=== PATIENT | male | born 1975 | race Caucasian/White ===

== ENCOUNTER → 2017-04-11 | Day surgery (SDC) | payer OTHER ==
[2017-04-05 10:02] VITALS: Ht 175.3 cm; Wt 88.6 kg
[~2017-04-11] VITALS: Ht 175.3 cm; Wt 88.6 kg
[~2017-04-11] MED LIST: ATROPINE SULFATE 0.1 MG/ML 5ML SYR IV PRN; BUPIVACAINE/EPINEPHRINE 0.25% 1:200,000 30 ML VIAL ONE; CEFAZOLIN 2000 MG/60 ML D5W IV SCH; CEFAZOLIN SOD 1 GM VIAL ONE; CEFAZOLIN SOD 1000MG/55 ML D5W IV ONE; DEXAMETHASONE SOD INJ 4 MG/ML VIAL ONE; ESCI10TA17 PO; EpHEDrine SULFATE INJ 50 MG/ML AMP IV PRN; EpHEDrine SULFATE INJ 50 MG/ML AMP ONE; EpINEphrine HCL INJ 1 MG/ML 5ML SYRINGE ONE; EpINEphrine INJ 1MG/ML AMP 1 MG/ML AMP ONE; FENO145T26 PO; FENTANYL CITRATE INJ 50 MCG/1 ML 2 ML VIAL ONE; FLUMAZENIL 0.1 MG/1 ML 10 ML VIAL IV PRN; HYDROmorphone INJ 1 MG/ML SYR IV PRN; HYDROmorphone INJ 1 MG/ML SYR ONE; KETO10TA PO; KETOROLAC TROMETHAMINE 30 MG/ML VIAL ONE; LABETALOL HCL IV 5 MG/ML 20ML IV PRN; LACTATED RINGER'S 1000ML 1,000 ML IV SCH; LIDOCAINE HCL 2% 2 ML VIAL (20MG/ML) ONE; MIDAZOLAM HCL 1 MG/ML 2ML VIAL ONE; NALOXONE HCL 0.4 MG/1 ML VIAL/CARP IV PRN; OMEG100046 PO; ONDANSETRON INJ 2 MG/ML 2 ML VIAL IV PRN; ONDANSETRON INJ 2 MG/ML 2 ML VIAL ONE; OXYC-57 PO; OXYCODONE/ACETAMINOPHEN 5-325 TAB PO PRN; PROMETHAZINE HCL INJ 12.5 MG in SODIUM CHLORIDE 0.9% 50ML 50 ML IV PRN; PROPOFOL IV EMULSION 10 MG/ML 20 ML VIAL IV ONE; ROPIVACAINE 0.5% 5 MG/ML 30 ML VIAL ONE; SODIUM CHLORIDE 0.9% 1000ML 1,000 ML IV SCH
--- NOTE | 2017-04-11 06:54 | History & Physical Bridge - [place] ---
H&P Re-Evaluation Bridge Note: I have examined the patient, reviewed the History & Physical and in the interval since the performance of the History & Physical I have noted the following changes of clinical significance: No changes noted
--- NOTE | 2017-04-11 09:55 | [facility] Post Operative Brief Note ---
Immediate Operative Summary Operative Date Apr 11, 2017. Pre-Operative Diagnosis Left knee anterior cruciate ligament tear Post-Operative Diagnosis Same as preop + Lateral Meniscus Tear Procedure(s) Performed Left Knee Arthroscopic Anterior Cruciate Ligament Reconstruction Using Hamstring Autograft, Partial Lateral Meniscectomy Surgeon Dr. Gonzalez Termination Clerk Surgeon(s) Gatito Crystal PA-C Estimated Blood Loss Minimal Findings Left ACL Tear + Lateral Meniscus Tear Specimens None Anesthesia General Complication(s) None Disposition Recovery Room / PACU
--- NOTE | 2017-04-11 10:06 | Discharge Instructions-SurgCtr ---
Discharge Instructions Date of Service Apr 11, 2017. Visit Reason for Visit: Left Knee Ruptured Acl, Sprain Mcl Discharge Discharge Diagnosis / Problem: Left ACL tear, lateral meniscus tear Discharge Goals Goal(s): Decrease discomfort, Improve function, Therapeutic intervention Activity Recommendations Activity Limitations: per Instructions/Follow-up section Weightbearing Status: Left weightbearing (as tolerated with brace ) Anesthesia . Post Anesthesia Instructions: If you have had General Anesthesia or IV Sedation: * Do not drive today. * Resume driving when surgeon permits. * Do not make important decisions or sign legal documents today. * Call surgeon for: 1. Temperature elevations greater than 101 degrees F. 2. Uncontrollable pain. 3. Excessive bleeding. 4. Persistent nausea and vomiting. 5. Medication intolerance (nausea, vomiting or rash). * For nausea and vomiting use only clear liquids such as: tea, soda, bouillon until nausea subsides, then gradually increase diet as tolerated. * If you have any concerns or questions, call your surgeon's office. If physician is unavailable and it is an emergency, call 911 or go to the nearest emergency room. . Instructions / Follow-Up Instructions / Follow-Up MEDICATIONS: * Resume previous medications unless instructed otherwise by your surgeon. * Always take pain medication on a full stomach or with food to avoid upset stomach. * Do not drink alcohol or drive while taking narcotics. * Ibuprofen or Tylenol may be taken if narcotic not needed. No ibuprofen while taking toradol SPECIAL CARE INSTRUCTIONS: __ None _x_ Keep extremity elevated and iced x 48 hours; apply ice 20-30 minutes 8-10 times/day. May remove at night. _x_ Crutches __ May discard when able _x_ Brace (for weight bearing. remove for therapy exercises) __ 24 hrs/day __ Remove at night _x_ Dressing __ Maintain until seen in office, may shower with plastic over site _x_ Remove dressings in 24-48 hours and then may shower _x_ Cover incisions with band-aids after showering _x_ Do not remove steri-strips Call physician if chills or temperature rises above 102 degrees or pain unrelieved by prescribed pain medications. Office [phone] follow up in 2 weeks Diet Recommendations Home Diet: resume previous diet Procedures Procedures Performed: Left Knee Arthroscopic Anterior Cruciate Ligament Reconstruction Using Hamstring Autograft, Partial Lateral Meniscectomy Pending Studies Studies pending at discharge: no Medical Emergencies . Who to Call and When: Medical Emergencies: If at any time you feel your situation is an emergency, please call 911 immediately. . Non-Emergent Contact Non-Emergency issues call your: Surgeon . . "Provider Documentation" section prepared by Cecil Crystal. .
[2017-04-11 11:15] VITALS: TEMP 36.8
--- NOTE | 2017-04-11 11:15 | Anesthesia Progress Nt - [facility] ---
Anesthesia Post Op Note Date & Time Apr 11, 2017 at 11:15 Vital Signs Pain Intensity: 2 Vital Signs Past 12 Hours Date Time Temp Pulse Resp B/P (MAP) Pulse Ox O2 Delivery O2 Flow Rate FiO2 04/11/17 10:56 139/70 04/11/17 10:55 88 21 99 04/11/17 10:55 91 21 04/11/17 10:51 145/89 04/11/17 10:51 36.9 83 16 145/89 98 Room Air 04/11/17 10:50 88 17 04/11/17 10:50 90 17 97 04/11/17 10:46 141/84 04/11/17 10:45 83 16 04/11/17 10:45 85 16 99 04/11/17 10:41 152/88 04/11/17 10:40 88 20 98 04/11/17 10:40 88 20 04/11/17 10:36 156/91 04/11/17 10:35 83 12 95 04/11/17 10:35 83 12 04/11/17 10:31 149/91 04/11/17 10:30 76 7 98 04/11/17 10:30 76 7 04/11/17 10:27 139/99 04/11/17 10:25 86 15 91 04/11/17 10:25 85 15 04/11/17 10:21 125/91 04/11/17 10:20 86 15 04/11/17 10:20 86 15 93 04/11/17 10:16 152/90 04/11/17 10:15 73 12 98 04/11/17 10:15 74 12 04/11/17 10:11 142/93 04/11/17 10:10 84 11 04/11/17 10:10 84 11 98 04/11/17 10:06 163/97 04/11/17 10:05 87 14 04/11/17 10:05 90 14 96 04/11/17 10:04 153/94 04/11/17 10:03 129/107 04/11/17 10:00 93 12 95 04/11/17 10:00 93 12 04/11/17 10:00 36.2 84 12 170/98 98 Mask 6 04/11/17 09:59 170/98 04/11/17 08:00 9 04/11/17 07:59 92 11 97 04/11/17 07:59 89 04/11/17 07:58 73 9 97 04/11/17 07:58 73 04/11/17 07:57 75 9 97 04/11/17 07:57 76 04/11/17 07:56 135/70 04/11/17 07:55 76 9 98 04/11/17 07:55 76 04/11/17 07:54 80 04/11/17 07:54 77 8 98 04/11/17 07:53 77 04/11/17 07:53 79 5 99 04/11/17 07:52 80 04/11/17 07:52 77 7 99 04/11/17 07:51 122/73 04/11/17 07:47 73 04/11/17 07:47 73 99 04/11/17 07:46 142/87 04/11/17 07:45 71 04/11/17 07:45 72 5 99 04/11/17 07:41 141/92 04/11/17 07:40 74 04/11/17 07:40 77 13 100 04/11/17 07:37 138/95 04/11/17 07:35 75 0 04/11/17 07:30 72 0 04/11/17 07:25 75 0 04/11/17 07:20 71 0 04/11/17 07:15 70 0 04/11/17 07:10 90 0 04/11/17 06:38 36.7 70 16 150/97 (114) 99 Room Air Notes Mental Status: alert / awake / arousable, participated in evaluation Pt Amnestic to Procedure: Yes Nausea / Vomiting: adequately controlled Pain: adequately controlled Airway Patency, RR, SpO2: stable & adequate BP & HR: stable & adequate Hydration State: stable & adequate Anesthetic Complications: no major complications apparent
[2017-04-11 11:43] VITALS: BP 135/82; PULSE 86; O2SAT 98
--- NOTE | 2017-04-11 14:45 | OPERATIVE REPORT ---
DATE OF OPERATION: 04/11/2017 PREOPERATIVE DIAGNOSIS: Left knee anterior cruciate ligament tear. POSTOPERATIVE DIAGNOSES: 1. Left knee anterior cruciate ligament tear. 2. Left unstable degenerative lateral meniscus tear. 3. Mild left knee degenerative joint disease. PROCEDURE PERFORMED: 1. Left knee exam under anesthesia. 2. Left knee diagnostic arthroscopy. 3. Left knee arthroscopic anterior cruciate ligament reconstruction with 7-1/2 mm/8 mm semitendinosis/gracilis autograft. 4. Left knee partial lateral meniscectomy. SURGEON: Tim Gonzalez M.D. RN PEDIATRIC ICU: Cecil Crystal PA-C. COMPLICATIONS: None. ESTIMATED BLOOD LOSS: Minimal. TOURNIQUET TIME: 70 minutes at 300 mmHg. ANESTHESIA: General with adductor canal block. DRAINS: None. SPECIMENS: None. OPERATIVE INDICATIONS: The patient is a 41-year-old very active gentleman who [place] just about [place] the [place] He [place] playing on the beach and jumped up and landed on his left knee and sustained an injury to his knee. He was seen in clinic and diagnosed with an ACL tear/MCL tear. This was confirmed by MRI. We treated his MCL and got that healed up and the patient now elected to proceed with operative treatment to his ACL. OPERATIVE FINDINGS: Examination under anesthesia of the left knee revealed a small knee effusion. Range of motion was full extension to 135+ degrees of flexion. He did have a varus alignment to his knee. He had a positive Lb, grade 2 pivot, negative anterior drawer, negative posterior drawer. No varus or valgus instability. Excellent endpoint to valgus stress test. Larry's was negative for mechanical symptoms. He had no posterolateral rotatory instability. ARTHROSCOPIC FINDINGS: Arthroscopic findings revealed a small serous knee effusion. He did have diffuse fairly mild grade 1 changes in all 3 compartments. In the intercondylar notch, the ACL was completely torn and portion of this was flipped anteriorly. The PCL was intact. In the medial compartment, the meniscus was intact. There was a slight increased gapping with valgus stressing. Good endpoint. In the lateral compartment, there was a complex tear of the posterior horn of the lateral meniscus. It was torn in several planes. It was not felt to be repairable. The articular surface revealed some grade 1 changes. OPERATIVE PROCEDURE: The patient was taken to the operating room, identified and placed on the operating table in supine position. All contact areas were appropriately padded. IV antibiotics were provided by anesthesia team. A general anesthetic was implemented by anesthesia team. An adductor canal block had been provided in the holding area. A left thigh tourniquet was then placed. The left knee was then examined under anesthesia with the findings as described above. Left leg was then prepped and draped in the usual sterile fashion. The left leg was elevated and exsanguinated with Esmarch and tourniquet was placed at 300 mmHg. Attention was first drawn toward harvesting the graft. About 4-5 cm incision made directly over the hamstring tendons. Sharp dissection was carried down through the subcutaneous tissues down to the level of the sartorius fascia. The subcutaneous tissues were mobilized circumferentially. An oblique incision was made in the sartorius fascia just above the hamstring tendons. The hamstring tendons were then taken sharply off the anterior face of the tibia. A #2 Ticron whipstitch was placed in the end of each tendon. Each tendon was then harvested with a closed ended tendon stripper. It was taken to the back table. They were cut to 21 cm in length. The muscle was stripped off the opposite end of the tendon. A similar #2 Ticron whipstitch was placed on the opposite end of the tendon. The tendons were then folded over. The femoral side fit snugly through a 7.5 mm tunnel and the tibial side through an 8 mm tunnel. The graft was placed on a graft board and 10 pounds of tension were applied until ready for implantation. During graft preparation, routine left knee arthroscopy was then performed through typical anteromedial and anterolateral portals. A superolateral outflow portal was established for outflow. The remnant of the ACL was excised. A pretty significant notchplasty was performed as he had fairly significant A-frame notch. Attention was then drawn to the lateral meniscus. With the use of motorized and hand controlled instruments, a partial lateral meniscectomy was then performed. I resected this back to stable tissue. We left as much meniscus tissue there to preserve some meniscal function. Attention was then drawn to the ACL reconstruction. With the use of the tibial guide set at 50 degrees, a guidewire was placed in the area of the proposed tibial tunnel. It was overreamed with an 8 mm solid reamer. The tunnel was cleaned of all debris. A 6 mm over the top guide was placed with the anteromedial portal. The knee was maximally flexed. The guidewire was placed in the area of proposed femoral tunnel. This was then overreamed with a 4.5 mm Endobutton drill bit. The tunnel length measured 40 mm in length. A 20 mm closed loop Endobutton was selected. A 7.5 mm acorn drill bit was then used to drill the femoral tunnel for a distance of 30 mm. The tunnel was cleaned of all debris. The hamstring tendon graft was then looped over a 20 mm closed loop Endobutton. The graft was then passed through the tibial tunnel up into the femoral tunnel and the Endobutton was flipped. The knee was cycled several times. The knee was brought out into full extension and there was no impingement. The knee was brought out into full extension. It was tensioned in full extension with the Intrafix tensioner at 20 pounds of tension. A small Biocryl Intrafix sheath was placed followed by 6/8 Biocryl Intrafix screw. This provided excellent fixation. The knee was examined. There was no Lb and no pivot shift at all. The scope was placed back in the knee and the graft was appropriately tensioned in flexion and extension. The shaver was then used to debride the knee of all extraneous debris. Once this was complete, the arthroscopic instruments were removed from the joint. The graft was cut at the exit point to the tibial tunnel. The portals were closed with 3-0 Prolene suture in a simple fashion. The knee was injected with 30 mL of 0.5% ropivacaine with epinephrine and 30 mg of Toradol. The tourniquet was then let down for a tourniquet time of 70 minutes. The anteromedial wound was then irrigated extensively. Hemostasis was assured using electrocautery. The subcutaneous tissues were then closed with 2-0 Dexon suture in a buried interrupted fashion. Skin was closed with 3-0 Prolene suture in a subcuticular fashion. Leg was then cleaned and dried and a sterile dressing composed of Steri-Strips, Xeroform, 4 x 4s, sterile ABD pad, sterile cast padding, Ramesh bandage, cold pack and knee immobilizer were applied. The patient then brought out of general anesthesia and transferred to the recovery room in stable condition. The patient tolerated the procedure well with no complications. All needle and sponge counts were correct at the end of the operation. I attest to the content of the Intraoperative Record and any orders documented therein. Any exceptions are noted below. MTDD
== END | disposition home or self-care (01) ==
LOC: X.SURG 06:30
PROVIDERS: ATTEND Orthopaedic Surgery Sports Medicine
DX: S83.512A Sprain of anterior cruciate ligament of left knee, initial encounter (principal); S83.272A Complex tear of lateral meniscus, current injury, left knee, initial encounter; X50.9XXA Other and unspecified overexertion or strenuous movements or postures, initial encounter; Y92.832 Beach as the place of occurrence of the external cause; M17.12 Unilateral primary osteoarthritis, left knee; E78.5 Hyperlipidemia, unspecified